=== PATIENT | male | born 1950 | race Two or more races ===

== ENCOUNTER 2019-07-25 10:30 | Observation (INO) | payer BC, MEDICARE ==
[~2019-07-25] VITALS: Ht 170.2 cm; Wt 74.5 kg
--- NOTE | 2019-07-25 10:49 | PHYS DOC ---
Past Medical History Past Medical History: Diabetes-Type II, Other Additional Past Medical Histor: Pt reports that his physican took him off of DM meds in 2014 Additional Past Surgical Histo: glass eye Smoking Status: Former Smoker Alcohol Use: None Drug Use: None Adult General Chief Complaint Chief Complaint: CHEST PAIN HPI HPI 68-year-old male presenting the emergency department today with chest pain. This started around 9 AM. It was a pressure sensation that was nonradiating. He did have some associated paresthesias and left upper extremity at the same time. He denies any diaphoresis or nausea. He has a history of a TIA in the past. He takes an aspirin and a medication for high cholesterol. The pain is since subsided and is mild in nature now. He denies any vomiting or diaphoresis. He denies abdominal pain. He denies unilateral leg swelling hemoptysis recent yuly jonathan or immobilization. He denies unilateral leg pain or redness. HEART SCORE History Slightly suspicious 0 Moderately suspicious +1 Highly suspicious +2 EKG 1 point: No ST depression but LBBB, LVH, repolarization changes (ex: digoxin); 2 points: ST depression/elevation not due to LBBB, LVH, or digoxin Normal 0 Non-specific repolarization disturbance +[address] depression +2 Age <45 0 45-65 +1 65 +2 Risk factors Risk factors: HTN, hypercholesterolemia, DM, obesity (BMI >30 kg/m), smoking (current, or smoking cessation 3 mo), positive family history (parent or sibling with CVD before age 65); atherosclerotic disease: prior AL, PCI/CABG, CVA/TIA, or peripheral arterial disease No known risk factors 0 1-2 risk factors +1 3 risk factors or history of atherosclerotic disease +2 Initial troponin Use local assays and corresponding cutoffs normal limit 0 1-2 normal limit +1 >2 normal limit +2 Total 4 points Review of systems is negative for abdominal pain dysuria polyuria. Positive for chest pain. All other review of systems negative. ED course: 68-year-old male presenting with chest pain. EKG obtained and reviewed by myself shows sinus rhythm with a regular rate. ST segments congru ent. Not suggestive of ACS. CBC unremarkable. Chemistry panel shows minimally elevated direct bilirubin otherwise unremarkable. Negative troponin. D-dimer within normal limits. Patient's pain is much improved on reexamination. We will admit for chest pain rule out. Current Medications Current Medications Current Medications Medications (Trade) Dose Ordered Sig/Champ Start Time Stop Time Status Last Admin Dose Admin Nitroglycerin (Nitrostat) 0.4 mg PRN Q5MIN PRN 07/25/19 11:00 Allergies Allergies Allergies Coded Allergies Type Severity Reaction Last Updated Verified No Known Drug Allergies 09/18/14 No Physical Exam Physical Exam Constitutional: Well developed, well nourished, no acute distress, non-toxic appearance. [] HENT: Normocephalic, atraumatic, bilateral external ears normal, oropharynx moist, no oral exudates, nose normal. [] Eyes: PERRLA, EOMI, conjunctiva normal, no discharge. [] Neck: Normal range of motion, no tenderness, supple, no stridor. [] Cardiovascular:Heart rate regular rhythm, no murmur [] Lungs & Thorax: Bilateral breath sounds clear to auscultation [] Abdomen: Bowel sounds normal, soft, no tenderness, no masses, no pulsatile mass es. [] Skin: Warm, dry, no erythema, no rash. [] Back: No tenderness, no CVA tenderness. [] Extremities: No tenderness, no cyanosis, no clubbing, ROM intact, no edema. [] Neurologic: Alert and oriented X 3, normal motor function, normal sensory function, no focal deficits noted. [] Psychologic: Affect normal, judgement normal, mood normal. [] Current Patient Data Vital Signs Vital Signs Date Time Temp Pulse Resp B/P (MAP) Pulse Ox O2 Delivery O2 Flow Rate FiO2 07/25/19 11:52 60 15 108/72 (84) 97 Room Air 07/25/19 11:15 97.8 97.8 Lab Values Laboratory Tests Test 07/25/19 10:53 White Blood Count 7.0 x10^3/uL (4.0-11.0) Red Blood Count 4.24 x10^6/uL (4.30-5.70) L Hemoglobin 14.8 g/dL (13.0-17.5) Hematocrit 42.8 % (39.0-53.0) Mean Corpuscular Volume 101 fL (79-100) H Mean Corpuscular Hemoglobin 35 pg (25-35) Mean Corpuscular Hemoglobin Concent 35 g/dL (31-37) Red Cell Distribution Width 12.8 % (11.5-14.5) Platelet Count 182 x10^3/uL (140-400) Neutrophils (%) (Auto) 63 % (31-73) Lymphocytes (%) (Auto) 23 % (24-48) L Monocytes (%) (Auto) 10 % (0-9) H Eosinophils (%) (Auto) 4 % (0-3) H Basophils (%) (Auto) 1 % (0-3) Neutrophils # (Auto) 4.4 x10^3/uL (1.8-7.7) Lymphocytes # (Auto) 1.6 x10^3/uL (1.0-4.8) Monocytes # (Auto) 0.7 x10^3/uL (0.0-1.1) Eosinophils # (Auto) 0.2 x10^3/uL (0.0-0.7) Basophils # (Auto) 0.1 x10^3/uL (0.0-0.2) Prothrombin Time 14.2 SEC (11.7-14.0) H Prothrombin Time INR 1.1 (0.8-1.1) Activated Partial Thromboplast Time 32 SEC (24-38) D-Dimer (Linda) < 0.27 ug/mlFEU Sodium Level 142 mmol/L (136-145) Potassium Level 4.3 mmol/L (3.5-5.1) Chloride Level 104 mmol/L (98-107) Carbon Dioxide Level 31 mmol/L (21-32) Anion Gap 7 (6-14) Blood Urea Nitrogen 13 mg/dL (8-26) Creatinine 1.0 mg/dL (0.7-1.3) Estimated GFR (Cockcroft-Gault) 74.5 Glucose Level 130 mg/dL (70-99) H Calcium Level 9.1 mg/dL (8.5-10.1) Total Bilirubin 0.8 mg/dL (0.2-1.0) Direct Bilirubin 0.4 mg/dL (0.0-0.2) H Aspartate Amino Transferase (AST) 40 U/L (15-37) H Alanine Aminotransferase (ALT) 43 U/L (16-63) Alkaline Phosphatase 112 U/L (46-116) Troponin I Quantitative < 0.017 ng/mL (0.000-0.055) RZ-Hef-K-Type Natriuretic Peptide 66 pg/mL (0-124) Total Protein 7.5 g/dL (6.4-8.2) Albumin 3.7 g/dL (3.4-5.0) Lipase 139 U/L (73-393) Laboratory Tests 07/25/19 10:53 Laboratory Tests 07/25/19 10:53 EKG EKG [] Radiology/Procedures Radiology/Procedures [] Course & Med Decision Making Course & Med Decision Making Pertinent Labs and Imaging studies reviewed. (See chart for details) [] Dragon Disclaimer Dragon Disclaimer This electronic medical record was generated, in whole or in part, using a voice recognition dictation system. Departure Departure Impression: Primary Impression: Chest pain Disposition: ADMITTED INPATIENT Admitting Physician: COOKIE Condition: STABLE Referrals: MIKAYLA MCCOLLUM MD (PCP) HEATHER MORALES MD Jul 25, 2019 10:48
[2019-07-25] MEDS ORDERED: NITROGLYCERIN SUBLINGUAL 0.4 MG BOTTLE OF 25. SL PRN (11:00)
[2019-07-25 11:06] LABS: BASO # 0.1 x10^3/uL (0.0-0.2); BASO % 1 % (0-3); EOS # 0.2 x10^3/uL (0.0-0.7); EOS % 4 % (0-3); HEMATOCRIT 42.8 % (39.0-53.0); HEMOGLOBIN 14.8 g/dL (13.0-17.5); LYMPH # 1.6 x10^3/uL (1.0-4.8); LYMPH % 23 % (24-48); MEAN CORPUSCULAR HEMOGLOBIN 35 pg (25-35); MEAN CORPUSCULAR HGB CONC 35 g/dL (31-37); MEAN CORPUSCULAR VOLUME 101 fL (79-100); MONO # 0.7 x10^3/uL (0.0-1.1); MONO % 10 % (0-9); NEUT # 4.4 x10^3/uL (1.8-7.7); NEUT % 63 % (31-73); PLATELET COUNT 182 x10^3/uL (140-400); RED BLOOD COUNT 4.24 x10^6/uL (4.30-5.70); RED CELL DISTRIBUTION WIDTH 12.8 % (11.5-14.5)
[2019-07-25 11:13] LABS: CALCIUM 9.1 mg/dL (8.5-10.1); GFR 74.5; POTASSIUM 4.3 mmol/L (3.5-5.1)
--- NOTE | 2019-07-25 11:13 | RAD ---
EXAM: Chest, single view. HISTORY: Chest pain. COMPARISON: None. FINDINGS: A frontal view of the chest is obtained. There is no infiltrate, pleural effusion or pneumothorax. The heart is normal in size. IMPRESSION: No acute pulmonary finding. Electronically signed by: Arely Pickett MD (07/25/2019 11:10 AM) [facility] [place]
[2019-07-25 11:15] LABS: PARTIAL THROMBOPLASTIN TIME 32 SEC (24-38); PROTHROMBIN TIME PATIENT 14.2 SEC (11.7-14.0)
[2019-07-25 11:20] LABS: ALBUMIN 3.7 g/dL (3.4-5.0); DIRECT BILIRUBIN 0.4 mg/dL (0.0-0.2); TOTAL BILIRUBIN 0.8 mg/dL (0.2-1.0); TOTAL PROTEIN 7.5 g/dL (6.4-8.2)
[2019-07-25 11:29] LABS: D-DIMER < 0.27 ug/mlFEU (0.00-0.50)
[2019-07-25 14:00] VITALS: BP 126/74
[2019-07-25] MEDS ORDERED: ATOR20TA58 (14:39)
[2019-07-25] MEDS ORDERED: ASPI325T11 (14:39)
--- NOTE | 2019-07-25 14:44 | EKG ---
[facility] [address] [place] [address] Test Date: 2019-07-25 Test Time: 10:40:34 Pat Name: AIYANA GARCIA Department: Room: Gender: M Clerk Entry Level: [place] : 1950 Requested By: HEATHER MORALES Order Number: [id number] Reading MD: Measurements Intervals [place] Rate: 67 P: 53 TX: 128 QRS: 68 QRSD: 76 T: 25 QT: 376 QTc: 400 Interpretive Statements SINUS RHYTHM NORMAL ECG RI6.01 No previous ECG available for comparison
--- NOTE | 2019-07-25 15:58 | PDOC2 ---
CARDIAC CONSULT DATE OF CONSULT Date of Consult DATE: 07/25/19 TIME: 15:49 REASON FOR CONSULT Reason for Consult: CP REFERRING PHYSICIAN Referring Physician: Dr. Valerio SOURCE Source: Chart review, Patient HISTORY OF PRESENT ILLNESS HISTORY OF PRESENT ILLNESS This is a 68 yo male who presented secondary to dizziness and chest pain. Patient reports he woke up this morning feeling well. Around lunchtime, began feeling dizzy and disoriented. Had fullness felling in his central chest. States he felt as if he began to panic and felt short of breath. No diaphoresis or nausea/vomiting. Called who brought him to the ED for further evaluation and treatment. Symptoms resolved prior to arrival in ED. Reports h/o "slow heart rate". No prior syncopal episodes. No previous h/o CAD. Is very active at home and has not had any shortness of breath or chest pain with exertion. PAST MEDICAL HISTORY CENTRAL NERVOUS SYSTEM: TIA Endocrine: Diabetes PAST SURGICAL HISTORY Past Surgical History: No pertinent history FAMILY HISTORY Family History: Diabetes SOCIAL HISTORY Smoke: Quit ALCOHOL: none Drugs: None Lives: with Family ALLERGIES ALLERGIES: Coded Allergies: No Known Drug Allergies (Unverified , 09/18/14) ROS Review of System 14 point ROS conducted with pertinent positives noted above in HPI PHYSICAL EXAM General: Alert, Oriented X3, Cooperative, No acute distress HEENT: Atraumatic, Mucous membr. moist/pink Lungs: Clear to auscultation, Normal air movement Heart: Regular rate (SR. SB noted on tele review. lowest 49), Normal S1, Normal S2 Abdomen: Soft, No tenderness Extremities: No edema, Normal pulses Skin: No breakdown, No significant lesion Neuro: Normal speech, Sensation intact Psych/Mental Status: Mental status NL, Mood NL MUSCULOSKELETAL: Osteoarthritic changes both hands VITALS/I&O VITALS/I&O: Vital Signs Date Time Temp Pulse Resp B/P (MAP) Pulse Ox O2 Delivery O2 Flow Rate FiO2 07/25/19 14:00 97.8 96 18 126/74 (91) 98 Room Air 97.8 LABS Lab: Laboratory Tests Test 07/25/19 10:53 White Blood Count 7.0 x10^3/uL (4.0-11.0) Red Blood Count 4.24 x10^6/uL (4.30-5.70) L Hemoglobin 14.8 g/dL (13.0-17.5) Hematocrit 42.8 % (39.0-53.0) Mean Corpuscular Volume 101 fL (79-100) H Mean Corpuscular Hemoglobin 35 pg (25-35) Mean Corpuscular Hemoglobin Concent 35 g/dL (31-37) Red Cell Distribution Width 12.8 % (11.5-14.5) Platelet Count 182 x10^3/uL (140-400) Neutrophils (%) (Auto) 63 % (31-73) Lymphocytes (%) (Auto) 23 % (24-48) L Monocytes (%) (Auto) 10 % (0-9) H Eosinophils (%) (Auto) 4 % (0-3) H Basophils (%) (Auto) 1 % (0-3) Neutrophils # (Auto) 4.4 x10^3/uL (1.8-7.7) Lymphocytes # (Auto) 1.6 x10^3/uL (1.0-4.8) Monocytes # (Auto) 0.7 x10^3/uL (0.0-1.1) Eosinophils # (Auto) 0.2 x10^3/uL (0.0-0.7) Basophils # (Auto) 0.1 x10^3/uL (0.0-0.2) Prothrombin Time 14.2 SEC (11.7-14.0) H Prothrombin Time INR 1.1 (0.8-1.1) Activated Partial Thromboplast Time 32 SEC (24-38) D-Dimer (Linda) < 0.27 ug/mlFEU Sodium Level 142 mmol/L (136-145) Potassium Level 4.3 mmol/L (3.5-5.1) Chloride Level 104 mmol/L (98-107) Carbon Dioxide Level 31 mmol/L (21-32) Anion Gap 7 (6-14) Blood Urea Nitrogen 13 mg/dL (8-26) Creatinine 1.0 mg/dL (0.7-1.3) Estimated GFR (Cockcroft-Gault) 74.5 Glucose Level 130 mg/dL (70-99) H Calcium Level 9.1 mg/dL (8.5-10.1) Total Bilirubin 0.8 mg/dL (0.2-1.0) Direct Bilirubin 0.4 mg/dL (0.0-0.2) H Aspartate Amino Transferase (AST) 40 U/L (15-37) H Alanine Aminotransferase (ALT) 43 U/L (16-63) Alkaline Phosphatase 112 U/L (46-116) Troponin I Quantitative < 0.017 ng/mL (0.000-0.055) DJ-Snh-W-Type Natriuretic Peptide 66 pg/mL (0-124) Total Protein 7.5 g/dL (6.4-8.2) Albumin 3.7 g/dL (3.4-5.0) Lipase 139 U/L (73-393) Laboratory Tests 07/25/19 10:53 Laboratory Tests 07/25/19 10:53 ASSESSMENT/PLAN ASSESSMENT/PLAN 1. Chest pain, atypical. Initial trop negative. EKG without acute changes as compared to previous in 2018. Very active at home without any CP or RUBIO 2. Dizziness; resolved. 3. Bradycardia, sinus. Lowest 49. Mean 65. No pauses. Reports h/o bradycardia. No syncopal episodes 4. Diabetes, II; as per PCP Recommendations ASA Trend troponin Lipids, TSH Echo to assess LV systolic function Monitor tele overnight Consider outpatient event monitor to r/o bradyarrhythmias contributing. Further pending above. CHRISTINE DEL ANGEL APRN Jul 25, 2019 15:57
[2019-07-25] MEDS ORDERED: ASPIRIN 325 MG TABLET PO ONE (16:00)
--- NOTE | 2019-07-25 16:01 | PDOC1 ---
History and Physical Date of Admission Date of Admission 07/25/2019 Identification/Chief Complaint Chief Complaint My chest got heavy History of Present Illness History of Present Illness Patient is a 68-year-old gentleman who does not have past medical history who was eating lunch and developed lightheadedness and a sensation of heaviness over his chest. The patient denies reflux type of symptoms. There was no radiation to the jaw or the arm the patient did not lose consciousness. Apparently they history dates back a week ago after the contributed to the history taking and the patient developed some cold-like symptoms sneezing coughing bringing up phlegm green sputum. He has self medicated with [id number] allergy medications with very little relief of his symptoms. The patient denies apheresis no sensation of impending doom with the event that led him to his visit to the ER. The patient denied nausea vomiting diarrhea no pleurisy has been reported. Workup is essentially unremarkable in the emergency department nevertheless we have been asked to trend troponins to rule out ACS. Patient is in agreement with the proposed plan of care. 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 Current Problem List Problem List Problems Medical Problems: (1) Chest pain Status: Acute Current Medications Current Medications Current Medications Medications (Trade) Dose Ordered Sig/[facility] Start Time Stop Time Status Last Admin Dose Admin Aspirin (Cameron Aspirin) 325 mg 1X ONCE 07/25/19 16:00 07/25/19 16:01 Aspirin (Ecotrin) 81 mg DAILYWBKFT 07/26/19 08:00 Nitroglycerin (Nitrostat) 0.4 mg PRN Q5MIN PRN 07/25/19 11:00 Allergies Allergies Allergies Coded Allergies Type Severity Reaction Last Updated Verified No Known Drug Allergies 09/18/14 No ROS Review of System CONSTITUTIONAL: No fever or chills EYES: No recent changes SKIN: No rash or itching CARDIOVASCULAR: No chest pain, syncope, palpitations, or edema RESPIRATORY: No SOB or cough GASTROINTESTINAL: No nausea, vomiting or abdominal pain NEUROLOGICAL: No headaches or weakness ENDOCRINE: No cold or heat intolerance GENITOURINARY: No urgency or frequency of urination MUSCULOSKELETAL: No back pain or joint pain LYMPHATICS: No enlarged lymph nodes PSYCHIATRIC: No anxiety or depression Physical Exam Physical Exam Gen.: well-developed well-nourished in no apparent distress Head: Normal shape atraumatic Eyes: Pupils equal reactive to light and accommodation, normal conjunctivae and lids Ears: Normal shape Nose: Normal shape no trauma Mouth: No exudates of the back of throat no thrush no lesions Neck: Supple no JVD no carotid bruit or lymphadenopathy no thyromegaly Chest: Lungs clear to auscultation with good inspiratory effort no crackles rales or rhonchi Cardiovascular: S1-S2 regular rhythm no murmurs gallops or rubs Abdomen: Bowel sounds present soft nontender no hepatosplenomegaly appreciated sign Extremities: No clubbing no cyanosis no edema peripheral pulses palpated bilaterally Neurological: Alert awake oriented in person time place and situation, cranial nerves II through XII intact, no motor or sensory deficits appreciated Psych: Appropriate mood, cooperative Vitals Vitals Vital Signs Date Time Temp Pulse Resp B/P (MAP) Pulse Ox O2 Delivery O2 Flow Rate FiO2 07/25/19 14:00 97.8 96 18 126/74 (91) 98 Room Air 97.8 Labs Labs Laboratory Tests Test 07/25/19 10:53 White Blood Count 7.0 x10^3/uL (4.0-11.0) Red Blood Count 4.24 x10^6/uL (4.30-5.70) Hemoglobin 14.8 g/dL (13.0-17.5) Hematocrit 42.8 % (39.0-53.0) Mean Corpuscular Volume 101 fL (79-100) Mean Corpuscular Hemoglobin 35 pg (25-35) Mean Corpuscular Hemoglobin Concent 35 g/dL (31-37) Red Cell Distribution Width 12.8 % (11.5-14.5) Platelet Count 182 x10^3/uL (140-400) Neutrophils (%) (Auto) 63 % (31-73) Lymphocytes (%) (Auto) 23 % (24-48) Monocytes (%) (Auto) 10 % (0-9) Eosinophils (%) (Auto) 4 % (0-3) Basophils (%) (Auto) 1 % (0-3) Neutrophils # (Auto) 4.4 x10^3/uL (1.8-7.7) Lymphocytes # (Auto) 1.6 x10^3/uL (1.0-4.8) Monocytes # (Auto) 0.7 x10^3/uL (0.0-1.1) Eosinophils # (Auto) 0.2 x10^3/uL (0.0-0.7) Basophils # (Auto) 0.1 x10^3/uL (0.0-0.2) Prothrombin Time 14.2 SEC (11.7-14.0) Prothromb Time International Ratio 1.1 (0.8-1.1) Activated Partial Thromboplast Time 32 SEC (24-38) D-Dimer (Linda) < 0.27 ug/mlFEU Sodium Level 142 mmol/L (136-145) Potassium Level 4.3 mmol/L (3.5-5.1) Chloride Level 104 mmol/L (98-107) Carbon Dioxide Level 31 mmol/L (21-32) Anion Gap 7 (6-14) Blood Urea Nitrogen 13 mg/dL (8-26) Creatinine 1.0 mg/dL (0.7-1.3) Estimated GFR (Cockcroft-Gault) 74.5 Glucose Level 130 mg/dL (70-99) Calcium Level 9.1 mg/dL (8.5-10.1) Total Bilirubin 0.8 mg/dL (0.2-1.0) Direct Bilirubin 0.4 mg/dL (0.0-0.2) Aspartate Amino Transf (AST/SGOT) 40 U/L (15-37) Alanine Aminotransferase (ALT/SGPT) 43 U/L (16-63) Alkaline Phosphatase 112 U/L (46-116) Troponin I Quantitative < 0.017 ng/mL (0.000-0.055) XO-Mif-Q-Type Natriuretic Peptide 66 pg/mL (0-124) Total Protein 7.5 g/dL (6.4-8.2) Albumin 3.7 g/dL (3.4-5.0) Lipase 139 U/L (73-393) Laboratory Tests Test 07/25/19 10:53 White Blood Count 7.0 x10^3/uL (4.0-11.0) Red Blood Count 4.24 x10^6/uL (4.30-5.70) Hemoglobin 14.8 g/dL (13.0-17.5) Hematocrit 42.8 % (39.0-53.0) Mean Corpuscular Volume 101 fL (79-100) Mean Corpuscular Hemoglobin 35 pg (25-35) Mean Corpuscular Hemoglobin Concent 35 g/dL (31-37) Red Cell Distribution Width 12.8 % (11.5-14.5) Platelet Count 182 x10^3/uL (140-400) Neutrophils (%) (Auto) 63 % (31-73) Lymphocytes (%) (Auto) 23 % (24-48) Monocytes (%) (Auto) 10 % (0-9) Eosinophils (%) (Auto) 4 % (0-3) Basophils (%) (Auto) 1 % (0-3) Neutrophils # (Auto) 4.4 x10^3/uL (1.8-7.7) Lymphocytes # (Auto) 1.6 x10^3/uL (1.0-4.8) Monocytes # (Auto) 0.7 x10^3/uL (0.0-1.1) Eosinophils # (Auto) 0.2 x10^3/uL (0.0-0.7) Basophils # (Auto) 0.1 x10^3/uL (0.0-0.2) Prothrombin Time 14.2 SEC (11.7-14.0) Prothromb Time International Ratio 1.1 (0.8-1.1) Activated Partial Thromboplast Time 32 SEC (24-38) D-Dimer (Linda) < 0.27 ug/mlFEU Sodium Level 142 mmol/L (136-145) Potassium Level 4.3 mmol/L (3.5-5.1) Chloride Level 104 mmol/L (98-107) Carbon Dioxide Level 31 mmol/L (21-32) Anion Gap 7 (6-14) Blood Urea Nitrogen 13 mg/dL (8-26) Creatinine 1.0 mg/dL (0.7-1.3) Estimated GFR (Cockcroft-Gault) 74.5 Glucose Level 130 mg/dL (70-99) Calcium Level 9.1 mg/dL (8.5-10.1) Total Bilirubin 0.8 mg/dL (0.2-1.0) Direct Bilirubin 0.4 mg/dL (0.0-0.2) Aspartate Amino Transf (AST/SGOT) 40 U/L (15-37) Alanine Aminotransferase (ALT/SGPT) 43 U/L (16-63) Alkaline Phosphatase 112 U/L (46-116) Troponin I Quantitative < 0.017 ng/mL (0.000-0.055) CC-Rag-A-Type Natriuretic Peptide 66 pg/mL (0-124) Total Protein 7.5 g/dL (6.4-8.2) Albumin 3.7 g/dL (3.4-5.0) Lipase 139 U/L (73-393) VTE Prophylaxis Ordered VTE Prophylaxis Devices: No VTE Pharmacological Prophylaxi: Yes Assessment/Plan Assessment/Plan Chest heaviness. We have been asked to rule out ACS with serial troponins Viral infection Hyperglycemia which may be postprandial Lower extremity discomfort Plan Check hemoglobin A1c We'll order a Doppler ultrasound of the right lower extremity despite d-dimer being negative given the high suspicion due to his immobility every day part of his job We'll continue to trend troponins Jorge with telemetry Further accommodations based on the clinical course DVT prophylaxis with Loveivanx CINDY EDWARDS MD Jul 25, 2019 16:01
[2019-07-25 19:37] VITALS: BP 119/70
[2019-07-25 23:13] VITALS: BP 129/79
[2019-07-25] MEDS ORDERED: guaiFENesin ORAL 200 MG/10 ML LIQUID. PO PRN (23:30)
[2019-07-26] MEDS: OXYMETAZOLINE 0.05% NASAL SPRAY 30ML BOTTLE. NS SCH ×2 (00:14→09:42)
[2019-07-26 03:30] VITALS: BP 125/71
[2019-07-26 04:44] LABS: BASO # 0.1 x10^3/uL (0.0-0.2); BASO % 1 % (0-3); EOS # 0.4 x10^3/uL (0.0-0.7); EOS % 5 % (0-3); HEMATOCRIT 40.3 % (39.0-53.0); HEMOGLOBIN 13.9 g/dL (13.0-17.5); LYMPH % 31 % (24-48); MEAN CORPUSCULAR HEMOGLOBIN 35 pg (25-35); MEAN CORPUSCULAR HGB CONC 35 g/dL (31-37); MEAN CORPUSCULAR VOLUME 100 fL (79-100); MONO # 0.9 x10^3/uL (0.0-1.1); MONO % 14 % (0-9); NEUT # 3.3 x10^3/uL (1.8-7.7); NEUT % 50 % (31-73); PLATELET COUNT 160 x10^3/uL (140-400); RED BLOOD COUNT 4.01 x10^6/uL (4.30-5.70); RED CELL DISTRIBUTION WIDTH 12.7 % (11.5-14.5); WHITE BLOOD COUNT 6.6 x10^3/uL (4.0-11.0)
[2019-07-26 05:01] LABS: CALCIUM 8.5 mg/dL (8.5-10.1); GFR 74.5
[2019-07-26 05:03] LABS: CHOLESTEROL/HDL RATIO 1.7
[2019-07-26 07:07] VITALS: BP 116/81
[2019-07-26] MEDS ORDERED: ASPIRIN ENTERIC COATED 81 MG TABLET.DR. PO SCH (08:00)
[2019-07-26 10:12] VITALS: BP 127/79
--- NOTE | 2019-07-26 13:02 | PDOC ---
[facility] [facility] PROGRESS NOTE Chief Complaint Chief Complaint Atypical Chest pain Dizziness Sinus Bradycardia Viral infection Diabetes Mellitus Type 2 History of Present Illness History of Present Illness 07/26/2019 -Patient seen and examined -Chart reviewed and care discussed with nursing staff. -Pt resting comfortably in bed, in NAD. He reports dizziness, and requests otoscope examination of his ears. Exam unremarkable. Spoke with patient and his over the phone about the current plan for discharge if cleared by cardiology. Vitals/I&O Vitals/I&O: Vital Signs Date Time Temp Pulse Resp B/P (MAP) Pulse Ox O2 Delivery O2 Flow Rate FiO2 07/26/19 10:12 97.8 61 16 127/79 (95) 97 Room Air 97.8 I & O 07/25/19 07/25/19 07/26/19 15:00 23:00 07:00 Intake Total 1080 ml 410 ml Balance 1080 ml 410 ml Physical Exam General: Alert, Oriented X3, Cooperative, No acute distress Heart: Regular rate (SR. SB noted on tele review. lowest 49), Normal S1, Normal S2, No murmurs Lungs: Clear Abdomen: Normal bowel sounds, Soft, No tenderness Extremities: No clubbing, No cyanosis, No edema, Normal pulses Skin: No breakdown, No significant lesion Labs Labs: Laboratory Tests Test 07/25/19 16:40 07/25/19 19:30 07/26/19 03:15 Troponin I Quantitative < 0.017 ng/mL (0.000-0.055) < 0.017 ng/mL (0.000-0.055) White Blood Count 6.6 x10^3/uL (4.0-11.0) Red Blood Count 4.01 x10^6/uL (4.30-5.70) Hemoglobin 13.9 g/dL (13.0-17.5) Hematocrit 40.3 % (39.0-53.0) Mean Corpuscular Volume 100 fL (79-100) Mean Corpuscular Hemoglobin 35 pg (25-35) Mean Corpuscular Hemoglobin Concent 35 g/dL (31-37) Red Cell Distribution Width 12.7 % (11.5-14.5) Platelet Count 160 x10^3/uL (140-400) Neutrophils (%) (Auto) 50 % (31-73) Lymphocytes (%) (Auto) 31 % (24-48) Monocytes (%) (Auto) 14 % (0-9) Eosinophils (%) (Auto) 5 % (0-3) Basophils (%) (Auto) 1 % (0-3) Neutrophils # (Auto) 3.3 x10^3/uL (1.8-7.7) Lymphocytes # (Auto) 2.0 x10^3/uL (1.0-4.8) Monocytes # (Auto) 0.9 x10^3/uL (0.0-1.1) Eosinophils # (Auto) 0.4 x10^3/uL (0.0-0.7) Basophils # (Auto) 0.1 x10^3/uL (0.0-0.2) Sodium Level 143 mmol/L (136-145) Potassium Level 4.0 mmol/L (3.5-5.1) Chloride Level 107 mmol/L (98-107) Carbon Dioxide Level 25 mmol/L (21-32) Anion Gap 11 (6-14) Blood Urea Nitrogen 16 mg/dL (8-26) Creatinine 1.0 mg/dL (0.7-1.3) Estimated GFR (Cockcroft-Gault) 74.5 Glucose Level 97 mg/dL (70-99) Calcium Level 8.5 mg/dL (8.5-10.1) Triglycerides Level 36 mg/dL (0-150) Cholesterol Level 120 mg/dL (0-200) LDL Cholesterol, Calculated 42 mg/dL (0-100) VLDL Cholesterol, Calculated 7 mg/dL (0-40) Non-HDL Cholesterol Calculated 49 mg/dL (0-129) HDL Cholesterol 71 mg/dL (40-60) Cholesterol/HDL Ratio 1.7 Review of Systems Review of Systems: Reports dizziness Denies Chest Pain Assessment and Plan Assessmemt and Plan Problems Medical Problems: (1) Chest pain Status: Acute Assessment: Atypical Chest pain Dizziness Sinus Bradycardia Viral infection Diabetes Mellitus Type 2 Plan: -Cardiac Monitoring -Trand labs -Echo results pending -Cardiology Following -DVT ppx -Possible discharge today if OK with cardiology -Full code Comment Review of Relevant I have reviewed the following items cal (where applicable) has been applied. Medications: Current Medications Medications (Trade) Dose Ordered Sig/Champ Route PRN Reason Start Time Stop Time Status Last Admin Dose Admin Aspirin (Ecotrin) 81 mg DAILYWBKFT PO 07/26/19 08:00 07/26/19 09:41 Guaifenesin (Robitussin) 200 mg PRN Q4HRS PRN PO COUGH 07/25/19 23:30 07/26/19 00:14 Oxymetazoline HCl (Afrin) 2 spray BID NS 07/25/19 23:45 07/26/19 09:42 PUJA DAVE III DO Jul 26, 2019 13:02
--- NOTE | 2019-07-26 13:21 | NUR ---
SS following for discharge planning. SS reviewed pt chart. Pt is from home and is currently on room air. SS will continue to follow for discharge planning.
[2019-07-26 14:09] VITALS: BP 111/65
--- NOTE | 2019-07-26 14:30 | PDOC ---
CARDIO Progress Notes Date and Time Date of Service 07/26/19 Time of Evaluation 1420 Subjective Subjective: No Chest Pain, No shortness of breath, No Palpitations, No Dizziness Vitals Vitals Vital Signs Date Time Temp Pulse Resp B/P (MAP) Pulse Ox O2 Delivery O2 Flow Rate FiO2 07/26/19 14:09 98.1 64 16 111/65 (80) 96 Room Air 98.1 Weight Weight [ ] Input and Output Intake and Output Intake and Output 07/26/19 07:00 Intake Total 1490 ml Balance 1490 ml Intake Oral 1490 ml # Voids 2 Laboratory Labs Laboratory Tests Test 07/25/19 16:40 07/25/19 19:30 07/26/19 03:15 Troponin I Quantitative < 0.017 ng/mL (0.000-0.055) < 0.017 ng/mL (0.000-0.055) White Blood Count 6.6 x10^3/uL (4.0-11.0) Red Blood Count 4.01 x10^6/uL (4.30-5.70) Hemoglobin 13.9 g/dL (13.0-17.5) Hematocrit 40.3 % (39.0-53.0) Mean Corpuscular Volume 100 fL (79-100) Mean Corpuscular Hemoglobin 35 pg (25-35) Mean Corpuscular Hemoglobin Concent 35 g/dL (31-37) Red Cell Distribution Width 12.7 % (11.5-14.5) Platelet Count 160 x10^3/uL (140-400) Neutrophils (%) (Auto) 50 % (31-73) Lymphocytes (%) (Auto) 31 % (24-48) Monocytes (%) (Auto) 14 % (0-9) Eosinophils (%) (Auto) 5 % (0-3) Basophils (%) (Auto) 1 % (0-3) Neutrophils # (Auto) 3.3 x10^3/uL (1.8-7.7) Lymphocytes # (Auto) 2.0 x10^3/uL (1.0-4.8) Monocytes # (Auto) 0.9 x10^3/uL (0.0-1.1) Eosinophils # (Auto) 0.4 x10^3/uL (0.0-0.7) Basophils # (Auto) 0.1 x10^3/uL (0.0-0.2) Sodium Level 143 mmol/L (136-145) Potassium Level 4.0 mmol/L (3.5-5.1) Chloride Level 107 mmol/L (98-107) Carbon Dioxide Level 25 mmol/L (21-32) Anion Gap 11 (6-14) Blood Urea Nitrogen 16 mg/dL (8-26) Creatinine 1.0 mg/dL (0.7-1.3) Estimated GFR (Cockcroft-Gault) 74.5 Glucose Level 97 mg/dL (70-99) Calcium Level 8.5 mg/dL (8.5-10.1) Triglycerides Level 36 mg/dL (0-150) Cholesterol Level 120 mg/dL (0-200) LDL Cholesterol, Calculated 42 mg/dL (0-100) VLDL Cholesterol, Calculated 7 mg/dL (0-40) Non-HDL Cholesterol Calculated 49 mg/dL (0-129) HDL Cholesterol 71 mg/dL (40-60) Cholesterol/HDL Ratio 1.7 Physical Exam HEENT: Neck Supple W Full Motion Chest: Symmetric LUNGS: Clear to Auscultation Heart: S1S2, RRR Abdomen: Soft N/T Extremities: No Edema Neurology: alert, oriented, follow commands Assessment Assessment 1. Chest pain, atypical. Initial trop negative. EKG without acute changes as compared to previous in 2018. Very active at home without any CP or RUBIO. AMI ruled out. Echo 2. Dizziness; resolved. No significant bradyarrhythmias noted on tele overnight 3. Bradycardia, sinus. Lowest 49. Mean 65. No pauses. Reports h/o bradycardia. No syncopal episodes 4. Diabetes, II; as per PCP Recommendations Supportive care If echo WNL, may discharge from a CV standpoint Follow up in our office with Dr. Amor in 6 weeks. If dizziness recurrent, consider outpatient event monitor. CHRISTINE DEL ANGEL APRN Jul 26, 2019 14:30
--- NOTE | 2019-07-26 16:56 | CARD ---
MR#: [id number] Date of Study: 07/26/2019 Ordering Physician: CHRISTINE DEL ANGEL, Referring Physician: CHRISTINE DEL ANGEL, Tech: Bernadette Rueda AKSHAT APPROVED REPORT EXAM: Two-dimensional and M-mode echocardiogram with Doppler and color Doppler. INDICATION Arrhythmia 2D DIMENSIONS RVDd2.8 (2.9-3.5cm)Left Atrium(2D)3.4 (1.6-4.0cm) IVSd1.0 (0.7-1.1cm)Aortic Root(2D)2.8 (2.0-3.7cm) LVDd4.1 (3.9-5.9cm)LVOT Diameter1.8 (1.8-2.4cm) PWd1.0 (0.7-1.1cm)LVDs3.0 (2.5-4.0cm) FS (%) 28.2 %SV41.4 ml LVEF(%)54.9 (>50%) Aortic Valve AoV Peak Chandra.117.8cm/[place] Peak GR.5.6mmHg LVOT Peak Chandra.85.9cm/sAVA (VMAX)1.85cm2 Mitral Valve MV E Mdknpheo07.3cm/sMV DECEL GBAJ166cc MV A Cfxmlwas97.3cm/sE/A Ratio1.5 Pulmonary Valve PV Peak Inxzkwfz98.8cm/s Tricuspid Valve TR P. Bbhavvaw956qd/sRAP QUMMAIWM5ffCj TR Peak Gr.60vzIrIKFV15qdXd Pulmonary Vein S1 Ywbzhkgq78.9cm/sD2 Dqhwxbjn31.6cm/s PVa yhiexzxl34jort LEFT VENTRICLE The left ventricle is normal size. There is normal left ventricular wall thickness. The left ventricu lar systolic function is normal and the ejection fraction is within normal range. The Ejection Fracti on is 60-65%. There is normal LV segmental wall motion. The left ventricular diastolic function and f illing is normal for age. There is no ventricular septal defect visualized. RIGHT VENTRICLE The right ventricle is normal size. The right ventricular systolic function is normal. ATRIA The left atrium size is normal. The right atrium size is normal. The interatrial septum is intact wit h no evidence for an atrial septal defect or patent foramen ovale as noted on 2-D or Doppler imaging. AORTIC VALVE The aortic valve is normal in structure and function. Doppler and Color Flow revealed no significant aortic regurgitation. There is no significant aortic valvular stenosis. MITRAL VALVE Mitral annular calcification is mild. There is no evidence of mitral valve prolapse. There is no mitr al valve stenosis. Doppler and Color-flow revealed trace mitral regurgitation. TRICUSPID VALVE The tricuspid valve is normal in structure and function. Doppler and Color Flow revealed trace tricus pid regurgitation. PAP is estimated at 22 mmHg. There is no tricuspid valve stenosis. PULMONIC VALVE The pulmonic valve is not well visualized. Doppler and Color Flow revealed no pulmonic valvular regur gitation. There is no pulmonic valvular stenosis. GREAT VESSELS The aortic root is normal in size. The ascending aorta is normal in size. The IVC is normal in size a nd collapses >50% with inspiration. PERICARDIAL EFFUSION There is no pleural effusion. There is no evidence of significant pericardial effusion. Critical Notification Critical Value: No <Conclusion> The left ventricular systolic function is normal and the ejection fraction is within normal range. Th e Ejection Fraction is 60-65%. There is normal LV segmental wall motion. Signed by : Russ Shukla, Electronically Approved : 07/26/2019 16:56:21
== END 2019-07-26 17:48 | disposition home or self-care (01) ==
LOC: ER 10:30 → 2 SOUTH 12:18
PROVIDERS: ADMIT Internal Medicine; ATTEND Internal Medicine
DX: R07.89 Other chest pain (principal); E11.9 Type 2 diabetes mellitus without complications; R42 Dizziness and giddiness; R00.1 Bradycardia, unspecified; Z87.891 Personal history of nicotine dependence
CPT/HCPCS: 36415; 71045; 80048; 80061; 80076; 83690; 83880; 84443; 84484; 85025; 85379; 85610; 85730; 93005; 93306; G0378; G0379; 99285-25

== ENCOUNTER 2019-12-12 08:12 | Emergency (ER) | payer BC, MEDICARE ==
[~2019-12-12] VITALS: Ht 170.2 cm; Wt 70.0 kg
[~2019-12-12 08:12] MED LIST: ASPI325T11; ATOR20TA58
[2019-12-12 09:20] VITALS: BP 154/99
--- NOTE | 2019-12-12 10:24 | PHYS DOC ---
Past Medical History Past Medical History: Diabetes-Type II, TIA, Other Additional Past Medical Histor: Pt reports that his physican took him off of DM meds in 2013 Past Surgical History: No Surgical History Additional Past Surgical Histo: glass eye Smoking Status: Former Smoker Alcohol Use: None Drug Use: None General Adult EDM: Chief Complaint: UPPER EXTREMITY INJURY HPI: HPI: Patient is a 69 year old male who presents with left arm pain after falling from a ladder yesterday. He states about 730 last night he was coming down off of the ladder and was 2 steps from being to the ground and the ladder fell sideways. He landed on his left shoulder and tried to reach out and catch himself with his left hand. He is having hand, wrist, shoulder pain that is sharp and achy in nature. He denies any shortness of breath. He did not hit his head. He did not lose consciousness. He is not on blood thinners. Review of Systems: Review of Systems: General: Denies fever, chills, sweats, fatigue Eyes: Denies drainage, blurred vision, eye redness HENT: Denies rhinorrhea, sore throat, earache Respiratory: Denies cough, shortness of breath, wheezing Cardiac: Denies edema, palpitations, chest pain GI: Denies abdominal pain, Nausea, vomiting MSK: Denies back pain, neck pain reports shoulder, arm, wrist pain. Skin: Denies rash, jaundice Neuro: Denies headache, dizziness Psychiatric: Denies SI/HI Heart Score: Risk Factors: Risk Factors: DM, Current or recent (<one month) smoker, HTN, HLP, family history of CAD, obesity. Risk Scores: Score 0 - 3: 2.5% MACE over next 6 weeks - Discharge Home Score 4 - 6: 20.3% MACE over next 6 weeks - Admit for Clinical Observation Score 7 - 10: 72.7% MACE over next 6 weeks - Early Invasive Strategies Current Medications: Current Medications Medications (Trade) Dose Ordered Sig/Champ Start Time Stop Time Status Last Admin Dose Admin Ketorolac Tromethamine (Toradol Im) 60 mg 1X ONCE 12/12/19 10:30 12/12/19 10:31 UNV Allergies: Allergies: Allergies Coded Allergies Type Severity Reaction Last Updated Verified No Known Drug Allergies 09/18/14 No Physical Exam: PE: General: Awake, alert, NAD. Well Nourished, well hydrated. Cooperative HEENT: Atraumatic, EOMI, PERRL, airway patent, moist oral mucosa Neck: Supple, trachea midline Respiratory: CTA bilaterally, normal effort, no wheezing/crackles CV: RRR, no murmur, cap refill <2 GI: Soft, nondistended, nontender, no masses MSK: Left wrist swelling and erythema, bruising to the palm of left hand, abrasions to left forearm, left shoulder tenderness, normal range of motion in all joints Skin: Warm, dry, intact Neuro: A&O x3, speech NL, sensory and motor grossly intact, no focal deficits Psych: Normal affect, normal mood, not suicidal or homicidal Current Patient Data: Vital Signs: Vital Signs Date Time Temp Pulse Resp B/P (MAP) Pulse Ox O2 Delivery O2 Flow Rate FiO2 12/12/19 09:20 98.1 70 16 154/99 (117) 99 Room Air 98.1 EKG: EKG: [] Radiology/Procedures: Radiology/Procedures: [] Course & Med Decision Making: Course & Med Decision Making Pertinent Labs and Imaging studies reviewed. (See chart for details) Patient is 69-year-old male who presents to the emergency room after having a fall from a ladder. Patient has a wrist, hand, shoulder pain. He has some swelling to his wrist and abrasions to his arm. X-rays were ordered. Patient drove Toradol was given for pain. X-ray negative. Patient's test results and vitals while in the ED were fully reviewed and discussed with the patient. Patient is stable and at this time does not need admission to the hospital. We have discussed strict return precautions and the importance of following up with their Primary Care Physician. Patient stated understanding and was given an opportunity to ask any questions. Patient is in agreement with plan. Dragon Disclaimer: Dragon Disclaimer: This electronic medical record was generated, in whole or in part, using a voice recognition dictation system. Departure Departure Impression: Primary Impression: Fall Disposition: HOME, SELF-CARE Condition: GOOD Referrals: MIKAYLA MCCOLLUM MD (PCP) Patient Instructions: Fall Prevention and Home Safety, Wrist Pain, [facility] Scripts Oxycodone/Apap 5-325 (PERCOCET 5-325 MG TABLET ) 1 Each Tablet 1 TAB PO PRN Q6HRS PRN for PAIN, #5 TAB 0 Refills Prov: YULI RAMOS MD 12/12/19 Justicifation of Admission Dx: Justifications for Admission: Justification of Admission Dx: No YULI RAMOS MD Dec 12, 2019 10:24
[2019-12-12] MEDS ORDERED: KETOROLAC 60 MG/2 ML VIAL. IM ONE (10:30)
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
[2019-12-12] MEDS ORDERED: OXYC1TAB15 PO (12:40)
== END 2019-12-12 13:05 | disposition home or self-care (01) ==
LOC: ER 08:12
DX: S60.212A Contusion of left wrist, initial encounter (principal); M25.512 Pain in left shoulder; R60.0 Localized edema; L53.9 Erythematous condition, unspecified; E11.9 Type 2 diabetes mellitus without complications; Z86.73 Personal history of transient ischemic attack (TIA), and cerebral infarction without residual deficits; Z98.890 Other specified postprocedural states; Z87.891 Personal history of nicotine dependence; W11.XXXA Fall on and from ladder, initial encounter; Y93.89 Activity, other specified; Y92.89 Other specified places as the place of occurrence of the external cause; Y99.8 Other external cause status
CPT/HCPCS: 73030; 73090; 73110; 73120; 96372; 99284; J1885

== ENCOUNTER 2020-01-03 18:02 | Emergency (ER) | payer OTHER, MEDICARE, BC ==
[~2020-01-03] VITALS: Ht 170.2 cm; Wt 68.4 kg
[~2020-01-03 18:02] MED LIST changes: +OXYC1TAB15 PO
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
[2020-01-03] MEDS ORDERED: METH-38 PO (20:14)
[2020-01-03] MEDS ORDERED: METHOCARBAMOL 750 MG TABLET PO PRN (20:15)
[2020-01-03] MEDS ORDERED: IBUPROFEN 400 MG TABLET. PO ONE (20:15)
[2020-01-03 20:57] VITALS: BP 168/91
== END 2020-01-03 20:57 | disposition home or self-care (01) ==
LOC: ER 18:02
DX: M25.512 Pain in left shoulder (principal); G89.11 Acute pain due to trauma; M25.531 Pain in right wrist; M54.2 Cervicalgia; R07.89 Other chest pain; E11.9 Type 2 diabetes mellitus without complications; Z86.73 Personal history of transient ischemic attack (TIA), and cerebral infarction without residual deficits; Z87.891 Personal history of nicotine dependence; V49.88XA Car occupant (driver) (passenger) injured in other specified transport accidents, initial encounter; Y92.488 Other paved roadways as the place of occurrence of the external cause; Y93.89 Activity, other specified; Y99.8 Other external cause status
CPT/HCPCS: 71046; 73030; 73110; 99284

== ENCOUNTER 2020-01-15 15:37 | Emergency (ER) | payer BC, MEDICARE ==
[~2020-01-15] VITALS: Ht 170.2 cm; Wt 63.0 kg
[~2020-01-15 15:37] MED LIST changes: +METH-38 PO
[2020-01-15 16:08] VITALS: BP 126/73
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
--- NOTE | 2020-01-15 17:18 | RAD ---
Exam: PA chest with left ribs INDICATION: Pain, trauma TECHNIQUE: Frontal view of the chest with frontal and oblique views of the left ribs Comparisons: None FINDINGS: The cardiomediastinal silhouette and pulmonary vessels are within normal limits. The lung and pleural spaces are clear. No displaced rib fracture identified. IMPRESSION: 1. No acute cardiopulmonary process. 2. No displaced rib fracture. Electronically signed by: Ana M Alas MD (01/15/2020 5:15 PM) [id number]
[2020-01-15] MEDS ORDERED: HYDR-3164 PO (17:58)
--- NOTE | 2020-01-17 11:02 | EKG ---
[facility] [address] [place] [address] Test Date: 2020-01-15 Test Time: 17:17:21 Pat Name: AIYANA GARCIA Department: Room: Gender: Interventional Pain Physician: : [id number] Requested By: CHINO GUTIERREZ Order Number: [id number] Reading MD: Measurements Intervals [place] Rate: 60 P: 65 ND: 132 QRS: 64 QRSD: 76 T: 38 QT: 390 QTc: 394 Interpretive Statements SINUS RHYTHM NO SPECIFIC ECG ABNORMALITIES RI6.01 No previous ECG available for comparison
== END 2020-01-15 18:14 | disposition home or self-care (01) ==
LOC: ER 15:37
DX: R07.81 Pleurodynia (principal); G89.29 Other chronic pain; M25.519 Pain in unspecified shoulder; E11.9 Type 2 diabetes mellitus without complications; I10 Essential (primary) hypertension; Z86.73 Personal history of transient ischemic attack (TIA), and cerebral infarction without residual deficits; Z87.891 Personal history of nicotine dependence
CPT/HCPCS: 71101; 93005; 99283; 99284